=== PATIENT | male | born 1940 | race Caucasian/White ===

== ENCOUNTER 2018-03-06 07:24 | Day surgery (SDC) | payer BC ==
--- NOTE | 2018-03-06 06:43 | History and Physical - Ferro ---
CHIEF COMPLAINT/HISTORY OF CHIEF COMPLAINT: This patient presents with a history of an intractable post lumbar laminectomy syndrome. Despite an intraspinal infusion system in place the pain pattern has been progressing and accelerating into different areas from previous treated. His pattern of pain now extending into both lower extremities. Due to the failure of his therapies a spinal cord stimulator trial was conducted on 02/12/18 with 75+% pain control. Due to failure of all other therapies and the success of the stimulator trial, he is here for implantation of a permanent system. PAST MEDICAL HISTORY: Hypertension and sleep apnea. PAST SURGICAL HISTORY: Spinal surgery, shoulder surgery, hernia repair, nasal surgery, and pump implant. MEDICATIONS ON ADMISSION: List to be provided. ALLERGIES: MORPHINE. FAMILY/PSYCHOSOCIAL HISTORY: Social history - Caffeine. Family history - Diabetes and hypertension. SYSTEMS REVIEW: The patient is appropriate in no acute distress. The remainder of the systems review is positive for glasses, dentures, sleep disturbance, blood pressure, degenerative arthritis and difficulty sleeping. PHYSICAL EXAMINATION: Height is 5'11", weight is 200 pounds. Vital signs - Blood pressure 120/54, pulse 57, respiratory rate 16. Current examination shows tenderness lumbar spine. Range of motion does produce pain throughout the low back and extending into both lower extremities. Pump in the left posterior gluteal margin is identified and the incision is intact. Examination of the lower extremities shows pain moving across both an L4 and L5 pattern into both legs. Motor and sensory field evaluation is intact. NEUROLOGIC: Cranial nerves are intact. IMPRESSION: 1. POST LUMBAR LAMINECTOMY SYNDROME, ICD-10 CODE M96.1 WITH RADICULOPATHY, ICD- 10 CODE M54.16 AND M54.17. 2. IMPLANTED SPINAL INFUSION SYSTEM. PLAN: The patient is here for implantation of a permanent spinal cord stimulator after successful trial and the failures of other therapies. The procedure will be considered outpatient, although an overnight stay will be evaluated. JOB NUMBER: [id number] [facility]
[~2018-03-06 07:24] MED LIST: ACETAMINOPHEN 1,000 MG/100 ML BTL IV ONE; CEFAZOLIN 2 Gram 2 GM/50 ML BAG IVPB ONE; FAMOTIDINE 20MG TABLET PO ONE; MECLIZINE 25 MG TABLET PO ONE; METOCLOPRAMIDE 10 MG TABLET PO ONE
[2018-03-06] MEDS ORDERED: LIDOCAINE 2% MDV (20MG/ML) 20ML VIAL IV ONE (07:25)
[2018-03-06] MEDS ORDERED: FENTANYL PF 100MCG/2ML VIAL IV ONE (07:25)
[2018-03-06] MEDS ORDERED: CEFAZOLIN 1G VIAL IM ONE (07:25)
[2018-03-06] MEDS ORDERED: LIDOCAINE 1% W/EPI 1:200,000 MPF 30ML SQ ONE (07:25)
[2018-03-06] MEDS ORDERED: BUPIVACAINE 0.5% W/EPI MPF 30 ML VIAL IVP ONE (07:25)
[2018-03-06] MEDS ORDERED: PROPOFOL 10 MG/ML VIAL IV ONE (07:25)
[2018-03-06] MEDS ORDERED: KETAMINE HCL 100MG/1ML VIAL INJ ONE (07:25)
[2018-03-06] MEDS ORDERED: MIDAZOLAM HCL 2MG/2ML VIAL IV ONE (07:25)
--- NOTE | 2018-03-07 16:09 | Operative Note - Ferro ---
DATE OF SURGERY: 03/06/18 PREOPERATIVE DIAGNOSES: POST LUMBAR LAMINECTOMY SYNDROME, ICD-10 CODE = M96.1 WITH RADICULOPATHY, ICD- 10 CODE = M54.16 AND M54.17. OPERATION: 1. FLUOROSCOPICALLY-GUIDED EPIDURAL ACCESS RIGHT T11/12, PLACEMENT OF SPINAL CORD STIMULATOR LEAD 1, A [employer] INFINION 16 WITH 16 ELECTRODES POSITIONED LEFT T7. 2. 3. FLUOROSCOPICALLY-GUIDED EPIDURAL ACCESS RIGHT T12/L1, PLACEMENT OF SPINAL CORD STIMULATOR LEAD 2, A [employer] INF[employer] 16 WITH 16 ELECTRODES POSITIONED RIGHT T7. 3. COMPLEX PROGRAMMING LEAD 1 OVER 20 MINUTES FOLLOWED BY COMPLEX PROGRAMMING OF LEAD 2 OVER 20 MINUTES. 4. INCISION, SUBCUTANEOUS DISSECTION, AND ANCHORING OF LEAD 1 AND LEAD 2 TO SUPRASPINOUS FASCIA USING A [employer] LOCKING ANCHOR. 5. INCISION, SUBCUTANEOUS DISSECTION, AND CREATION OF SUBCUTANEOUS POUCH, RIGHT FLANK FOR PLACEMENT OF GENERATOR IDENTIFIED [employer] WAVEWR[employer] PROGRAMMABLE RECHARGEABLE. 6. TUNNELING LEAD POUCHES INTO GENERATOR POUCH. EACH LEAD INTERFACED TO GENERATOR. 7. PLACEMENT OF GENERATOR INTO POUCH. PLACEMENT OF LEADS INTO POUCH. CLOSURE OF BOTH INCISIONS USING STRATAFIX SUTURE 2-0 FASCIA, 3-0 SKIN. DERMABOND CLOSURE. 8. COMPLEX RECOVERY ROOM PROGRAMMING INTERNAL GENERATOR HOME USE, TWO STIMULATORS, 20 MINUTES. SURGEON: ETHAN BUSTAMANTE D.O. ANESTHESIA: LOCAL SEDATION. ANESTHESIA PROVIDER: SARAY SCANLON CRNA. INDICATION: This patient with a history of intractable post laminectomy radiculopathy. Due to the failure of therapy including the insufficient pain control through a spinal infusion device, a spinal cord stimulator trial was conducted with 75 to 85% pain control. Due to the above failures and the success of the trial, he is here by his request for permanent implant. PROCEDURE: Intravenous line, vital sign monitoring, IV sedation. With the patient prone, sterile prep, sterile technique, and under imaging, from the right, the epidural interspace at 02/16 and 03/07 were marked and infiltrated. Using a separate curved access Epimed needles with [id number], the space was accessed. At /12, spinal cord stimulator lead 1, a [employer] Infinion 16 with 16 electrodes was advanced left of midline at T7. With the access at 03/07, spinal cord stimulator lead 2, also a [employer] Infinion 16 with 16 electrodes, positioned right at T7. Complex programming of lead 1 over 20 minutes followed by complex programming of lead 2 over 20 minutes resulted in complete patterns of stimulation across the back and into the legs; patient indicating we had all of the areas of the pain. He was given the option to implant, continue to program, or remove; he opted to implant. Questions were repeated with the same response. The skin above and below both needles was infiltrated, incision made, and subcutaneous dissection was conducted to the supraspinous fascia. The needles were removed and the leads were anchored to the deep fascia with a [employer] [place] and nonabsorbable suture. At the right posterior gluteal margin, a site picked by the patient for the generator, a WaveWriter [employer], skin infiltrated, incision made, and subcutaneous dissection was conducted to form a pouch of suitable size and depth. A pouch was formed suitable for the generator identified as a [employer] Programmable Rechargeable WaveWriter. A tunneling tool was used to carry the leads into the generator pouch and each lead interfaced to the generator. Antibiotic irrigation and Bovie for hemostasis. The leads were placed into their pouch. The generator was placed into its own pouch and then both incisions were closed STRATAFIX suture 2-0 fascia, 3-0 skin. Dermabond closure approximating the edges both wounds. He was then transported to the Recovery Room stable. No side-effects from the procedure or the sedation. When fully awake and alert, complex programming of the two leads was performed re-establishing stimulation and pain control to all of the appropriate areas. He was instructed on the use of the system, provided with information, error messaging, and then prepared for discharge. DISCHARGE INSTRUCTIONS: 1. Sites remain clean and dry. No showering or bathing in any way that would disrupt dressings. If it happens, contact the clinic. 2. Standard medications resumed including the antibiotic Keflex 500 mg four times a day for 10 days. 3. The office will contact the patient within the next 24-48 hours to set up an appointment in 7-10 days for us to evaluate the sites. Until then, his activities should stay low. He can shower and bathe but not sit in a tub or water. All other instructions provided, numbers to contact, problems given. We will see him in 7-10 days. cc: Dr. Catarino Seay JOB NUMBER: [id number] [facility]
--- NOTE | 2018-03-08 19:39 | RADIOLOGY REPORT ---
EXAM: SPINE, 1 VIEW HISTORY: STIMULATOR PLACEMENT. TECHNIQUE: Single AP view of the thoracic spine was performed. FINDINGS: The stimulator lead tips are at the T6-7 level. IMPRESSION: STIMULATOR LEAD TIPS ARE AT THE T6-7 LEVEL. JOB NUMBER: [id number] [facility]
== END 2018-03-06 11:27 | disposition home or self-care (01) ==
LOC: SUR 07:24
PROVIDERS: ATTEND Pain Medicine Interventional Pain Medicine
DX: M96.1 Postlaminectomy syndrome, not elsewhere classified (principal); M54.16 Radiculopathy, lumbar region; M54.17 Radiculopathy, lumbosacral region; I10 Essential (primary) hypertension; I65.23 Occlusion and stenosis of bilateral carotid arteries
CPT/HCPCS: 72020; 95972; C1820; C1883; J0690; J3490